=== PATIENT | female | born 1990 | race American Indian/Alaskan Native ===

== ENCOUNTER 2019-09-28 02:54 | Emergency (ER) | payer SELFPAY ==
[2019-09-28 03:59] LABS: Basophils % (Auto) 0.5 % (0.0-1.8); Eosinophils % (Auto) 0.5 % (0.0-4.3); Hematocrit 26.2 % (30.3-42.9); Hemoglobin 8.5 gm/dl (10.1-14.3); Lymphocytes # (Auto) 1.3 K/mm3 (1.2-5.4); Lymphocytes % (Auto) 20.5 % (13.4-35.0); Mean Corpuscular HGB Conc 32 % (30-34); Mean Corpuscular Volume 77 fl (79-97); Monocytes # (Auto) 0.4 K/mm3 (0.0-0.8); Monocytes % (Auto) 6.2 % (0.0-7.3); Platelet Count 283 K/mm3 (140-440); Red Blood Count 3.43 M/mm3 (3.65-5.03); Red Cell Distribution Width 15.8 % (13.2-15.2)
[2019-09-28 04:24] LABS: Alanine Aminotransferase 16 units/L (7-56); Albumin 3.7 g/dL (3.9-5); BUN/Creatinine Ratio 14; Blood Urea Nitrogen 13 mg/dL (7-17); Calcium 8.6 mg/dL (8.4-10.2); Hemolysis Index 4
[2019-09-28] MEDS ORDERED: SODIUM CHLORIDE 0.9% 1000 ML 1,000 ML IV ONE (05:01)
[2019-09-28] MEDS ORDERED: ONDANSETRON 4 MG/2 ML INJ IV ONE (05:01)
[2019-09-28] MEDS ORDERED: MORPHINE 4 MG/1 ML INJ IV ONE (05:01)
--- NOTE | 2019-09-28 06:01 | Cat Scan Report ---
CT ABDOMEN AND PELVIS WITH CONTRAST INDICATION: Right lower quadrant abdominal pain. TECHNIQUE: Axial CT images were obtained through the abdomen and pelvis after IV contrast. All CT scans at this location are performed using CT dose reduction for ALARA by means of automated exposure control. COMPARISON: None available. FINDINGS: LOWER CHEST: No significant abnormality. LIVER: No significant abnormality. GALLBLADDER: No significant abnormality. BILE DUCTS: No significant abnormality. PANCREAS: No significant abnormality. SPLEEN: No significant abnormality. ADRENALS: No significant abnormality. RIGHT KIDNEY and URETER: No significant abnormality. LEFT KIDNEY and URETER: No significant abnormality. STOMACH and SMALL BOWEL: No significant abnormality. COLON: No significant abnormality. APPENDIX: No significant abnormality. PERITONEUM: Trace amount of free pelvic fluid. No free air. No fluid collection. LYMPH NODES: No significant adenopathy. AORTA and ARTERIES: No significant abnormality. IVC and VEINS: No significant abnormality. URINARY BLADDER: No significant abnormality. REPRODUCTIVE ORGANS: No significant abnormality. Bilateral tubal ligation clips. ADDITIONAL FINDINGS: None. SKELETAL SYSTEM: No significant abnormality. IMPRESSION: 1. No significant abnormality. 2. Trace amount of free pelvic fluid likely physiologic in etiology Signer Name: Saud Motta MD Signed: 09/28/2019 5:57 AM Workstation Name: [id number]
[2019-09-28 06:36] LABS: Bilirubin,Urine NEG (Negative); Blood,Urine SM (Negative); Color,Urine Yellow (Yellow); Mucus,Urine FEW /HPF; Protein,Urine <15 mg/dL mg/dL (Negative); Urobilinogen,Urine < 2.0 mg/dL (<2.0)
--- NOTE | 2019-09-28 07:19 | Emergency Department Report ---
ED Abdominal Pain HPI - General Chief Complaint: Abdominal Pain Stated Complaint: RLQ ABDOMINAL PAIN Time Seen by Provider: 09/28/19 06:48 Source: patient, EMS Mode of arrival: Wheelchair Limitations: No Limitations - History of Present Illness Initial Comments: This pleasant 29-year-old female presents the emergency department chief complaint of right lower quadrant/right sided pelvic pain that started suddenly this morning at midnight. She reports this pain started in her right flank and radiates to the right lower quadrant. She denies any other associated symptoms such as nausea, vomiting, diarrhea, fever, chills, night sweats, headache, dizz iness, blurry vision, chest pain, shortness of breath. She reports the pain is sharp and intermittently cramping and is a 9 out of 10 in severity. She denies any chance of due to not being sexually active as well as having a tubal ligation. She declines any work-up for STI due to not being sexually active. Severity scale (0 -10): 4 - Related Data Previous Rx's Medication Instructions Recorded Last Taken Type Ibuprofen [Motrin 800 MG tab] 800 mg PO Q8HR PRN #30 tablet 09/28/19 Unknown Rx Allergies Allergy/AdvReac Type Severity Reaction Status Date / Time No Known Allergies Allergy Verified 09/28/19 03:23 ED Review of Systems ROS: Stated complaint: RLQ ABDOMINAL PAIN Other details as noted in HPI Comment: All other systems reviewed and negative Constitutional: denies: chills, fever Eyes: denies: eye pain, eye discharge, vision change ENT: denies: ear pain, throat pain Respiratory: denies: cough, shortness of breath, wheezing Cardiovascular: denies: chest pain, palpitations Endocrine: no symptoms reported Gastrointestinal: as per HPI, abdominal pain. denies: nausea, diarrhea Genitourinary: as per HPI. denies: urgency, dysuria, discharge Musculoskeletal: as per HPI, back pain. denies: joint swelling, arthralgia Skin: denies: rash, lesions Neurological: denies: headache, weakness, paresthesias Psychiatric: denies: anxiety, depression Hematological/Lymphatic: denies: easy bleeding, easy bruising ED Past Medical Hx - Past Medical History Previous Medical History?: Yes Hx Asthma: Yes (as child) - Surgical History Past Surgical History?: Yes Additional Surgical History: tubes tied - Social History Smoking Status: Never Smoker Substance Use Type: None - Medications Home Medications: Home Medications Medication Instructions Recorded Confirmed Last Taken Type Ibuprofen [Motrin 800 MG tab] 800 mg PO Q8HR PRN #30 tablet 09/28/19 Unknown Rx ED Physical Exam - General Limitations: No Limitations General appearance: alert, in no apparent distress - Head Head exam: Present: atraumatic, normocephalic - Eye Eye exam: Present: normal appearance, PERRL, EOMI Pupils: Present: normal accommodation - ENT ENT exam: Present: normal exam, normal orophraynx, mucous membranes moist - Neck Neck exam: Present: normal inspection, full ROM. Absent: tenderness, meningismus - Respiratory Respiratory exam: Present: normal lung sounds bilaterally. Absent: respiratory distress, wheezes, rales, rhonchi, stridor, chest wall tenderness - Cardiovascular Cardiovascular Exam: Present: regular rate, normal rhythm, normal heart sounds. Absent: systolic murmur, diastolic murmur, rubs, gallop - GI/Abdominal GI/Abdominal exam: Present: soft, tenderness (Mild tenderness to the right lower quadrant and right side of the pelvis, negative psoas and obturator sign, no rebound or guarding, negative Avalos sign), normal bowel sounds. Absent: distended, guarding, rebound - Extremities Exam Extremities exam: Present: normal inspection, full ROM. Absent: tenderness, calf tenderness - Back Exam Back exam: Present: normal inspection - Neurological Exam Neurological exam: Present: alert, oriented X3 - Psychiatric Psychiatric exam: Present: normal affect, normal mood - Skin Skin exam: Present: warm, dry, intact, normal color. Absent: rash ED Course - Reevaluation(s) Reevaluation #1: 09/28/19 08:02 On reevaluation the patient is feeling much better after pain medication. Her CT was unremarkable and negative for acute process. Ultrasound was also unremarkable. Patient was offered STI work-up including pelvic exam to rule out PID and TOA however she politely declined. I suspect her pain could be secondary to a ruptured ovarian cyst there is a trace amount of free fluid in the pelvis that is likely physiologic per radiology. Otherwise the patient's work-up was unremarkable. She does have a history of chronic iron deficiency anemia which is present on her labs today. Educated her to supplement with iron and vitamin C and follow-up with her primary doctor regarding this. She was instructed to return to the emerge part immediately she develops any change or worsening symptoms. She verbalized understanding the diagnosis, treatment plan and follow-up instructions and all of her questions were answered. ED Medical Decision Making - Lab Data Result diagrams: 09/28/19 03:30 09/28/19 03:30 Lab Results 09/28/19 09/28/19 09/28/19 Range/Units 03:30 03:30 03:30 WBC 6.4 (4.5-11.0) K/mm3 RBC 3.43 L (3.65-5.03) M/mm3 Hgb 8.5 L (10.1-14.3) gm/dl Hct 26.2 L (30.3-42.9) % MCV 77 L (79-97) fl MCH 25 L (28-32) pg MCHC 32 (30-34) % RDW 15.8 H (13.2-15.2) % Plt Count 283 (140-440) K/mm3 Lymph % (Auto) 20.5 (13.4-35.0) % Foard % (Auto) 6.2 (0.0-7.3) % Eos % (Auto) 0.5 (0.0-4.3) % Baso % (Auto) 0.5 (0.0-1.8) % Lymph # 1.3 (1.2-5.4) K/mm3 Foard # 0.4 (0.0-0.8) K/mm3 Eos # 0.0 (0.0-0.4) K/mm3 Baso # 0.0 (0.0-0.1) K/mm3 Seg Neutrophils % 72.3 H (40.0-70.0) % Seg Neutrophils # 4.7 (1.8-7.7) K/mm3 Sodium 138 (137-145) mmol/L Potassium 3.9 (3.6-5.0) mmol/L Chloride 105.7 (98-107) mmol/L Carbon Dioxide 20 L (22-30) mmol/L Anion Gap 16 mmol/L BUN 13 (7-17) mg/dL Creatinine 0.9 (0.7-1.2) mg/dL Estimated GFR > 60 ml/min BUN/Creatinine Ratio 14 % Glucose 107 H (65-100) mg/dL Calcium 8.6 (8.4-10.2) mg/dL Total Bilirubin < 0.20 (0.1-1.2) mg/dL AST 19 (5-40) units/L ALT 16 (7-56) units/L Alkaline Phosphatase 72 (35-129) units/L Total Protein 7.3 (6.3-8.2) g/dL Albumin 3.7 L (3.9-5) g/dL Albumin/Globulin Ratio 1.0 % Lipase 45 (13-60) units/L HCG, Qual Negative (Negative) Urine Color (Yellow) Urine Turbidity (Clear) Urine pH (5.0-7.0) Ur Specific [place] (1.003-1.030) Urine Protein (Negative) mg/dL Urine Glucose (UA) (Negative) mg/dL Urine Ketones (Negative) mg/dL Urine Blood (Negative) Urine Nitrite (Negative) Urine Bilirubin (Negative) Urine Urobilinogen (<2.0) mg/dL Ur Leukocyte Esterase (Negative) Urine WBC (Auto) (0.0-6.0) /HPF Urine RBC (Auto) (0.0-6.0) /HPF U Epithel Cells (Auto) (0-13.0) /HPF Urine Mucus /HPF 07/15/20 Range/Units 06:14 WBC (4.5-11.0) K/mm3 RBC (3.65-5.03) M/mm3 Hgb (10.1-14.3) gm/dl Hct (30.3-42.9) % MCV (79-97) fl MCH (28-32) pg MCHC (30-34) % RDW (13.2-15.2) % Plt Count (140-440) K/mm3 Lymph % (Auto) (13.4-35.0) % Foard % (Auto) (0.0-7.3) % Eos % (Auto) (0.0-4.3) % Baso % (Auto) (0.0-1.8) % Lymph # (1.2-5.4) K/mm3 Foard # (0.0-0.8) K/mm3 Eos # (0.0-0.4) K/mm3 Baso # (0.0-0.1) K/mm3 Seg Neutrophils % (40.0-70.0) % Seg Neutrophils # (1.8-7.7) K/mm3 Sodium (137-145) mmol/L Potassium (3.6-5.0) mmol/L Chloride (98-107) mmol/L Carbon Dioxide (22-30) mmol/L Anion Gap mmol/L BUN (7-17) mg/dL Creatinine (0.7-1.2) mg/dL Estimated GFR ml/min BUN/Creatinine Ratio % Glucose (65-100) mg/dL Calcium (8.4-10.2) mg/dL Total Bilirubin (0.1-1.2) mg/dL AST (5-40) units/L ALT (7-56) units/L Alkaline Phosphatase (35-129) units/L Total Protein (6.3-8.2) g/dL Albumin (3.9-5) g/dL Albumin/Globulin Ratio % Lipase (13-60) units/L HCG, Qual (Negative) Urine Color Yellow (Yellow) Urine Turbidity Clear (Clear) Urine pH 5.0 (5.0-7.0) Ur Specific [place] 1.017 (1.003-1.030) Urine Protein <15 mg/dl (Negative) mg/dL Urine Glucose (UA) Neg (Negative) mg/dL Urine Ketones Neg (Negative) mg/dL Urine Blood Sm (Negative) Urine Nitrite Neg (Negative) Urine Bilirubin Neg (Negative) Urine Urobilinogen < 2.0 (<2.0) mg/dL Ur Leukocyte Esterase Neg (Negative) Urine WBC (Auto) 2.0 (0.0-6.0) /HPF Urine RBC (Auto) 2.0 (0.0-6.0) /HPF U Epithel Cells (Auto) < 1.0 (0-13.0) /HPF Urine Mucus Few /HPF - Radiology Data Radiology results: report reviewed, image reviewed Ultrasound Report Signed Patient: DARLYN GREEN MR#: [id number] 570 : 1990 Acct:[id number] Age/Sex: 29 / F ADM Date: 09/28/19 Loc: ED Attending Dr: Ordering Physician: ARIN STORM Date of Service: 09/28/19 Procedure(s): US transvaginal Accession Number(s): [id number] cc: ARIN STORM ULTRASOUND PELVIS INDICATION: severe right sided abdominal pain. TECHNIQUE: Transabdominal and Transvaginal. Duplex Color Doppler used: Yes. COMPARISON: CT abdomen and pelvis with contrast from earlier today. FINDINGS: Uterus: Present. Size: 10.6 x 4.2 x 5.5 cm. Endometrial complex: Normal measuring 1.4 cm. Mass lesions: None. Additional findings: None. Right Ovary: Size: 3.1 x 2.6 x 2.9 cm Blood flow: Normal. Cyst or mass: A dominant follicle measures 1.6 cm. No other solid or cystic lesions. Left Ovary: Size: 2.8 x 1.9 x 2.4 cm Blood flow: Normal. Cyst or mass: None. Urinary Bladder: Normal. Free Fluid: Trace amount. Additional Findings: None. IMPRESSION: 1. No acute sonographic abnormality of the pelvis. 2. Trace amount of free fluid is likely physiologic. Signer Name: Karlos Perea MD Signed: 09/28/2019 7:54 AM Workstation Name: [id number] Transcribed By: [place] Dictated By: Karlos Perea MD Electronically Authenticated By: Karlos Perea MD Signed Date/Time: 09/28/19 0754 Cat Scan Report Signed Patient: DARLYN GREEN MR#: [id number] : 1990 Acct:[id number] Age/Sex: 29 / F ADM Date: 09/28/19 Loc: ED Attending Dr: Ordering Physician: ARIN MOTA Date of Service: 09/28/19 Procedure(s): CT abdomen pelvis w con Accession Number(s): [id number] cc: ARIN MOTA CT ABDOMEN AND PELVIS WITH CONTRAST INDICATION: Right lower quadrant abdominal pain. TECHNIQUE: Axial CT images were obtained through the abdomen and pelvis after IV contrast. All CT scans at this location are performed using CT dose reduction for ALARA by means of automated exposure control. COMPARISON: None available. FINDINGS: LOWER CHEST: No significant abnormality. LIVER: No significant abnormality. GALLBLADDER: No significant abnormality. BILE DUCTS: No significant abnormality. PANCREAS: No significant abnormality. SPLEEN: No significant abnormality. ADRENALS: No significant abnormality. RIGHT KIDNEY and URETER: No significant abnormality. LEFT KIDNEY and URETER: No significant abnormality. STOMACH and SMALL BOWEL: No significant abnormality. COLON: No significant abnormality. APPENDIX: No significant abnormality. PERITONEUM: Trace amount of free pelvic fluid. No free air. No fluid collection. LYMPH NODES: No significant adenopathy. AORTA and ARTERIES: No significant abnormality. IVC and VEINS: No significant abnormality. URINARY BLADDER: No significant abnormality. REPRODUCTIVE ORGANS: No significant abnormality. Bilateral tubal ligation clips. ADDITIONAL FINDINGS: None. SKELETAL SYSTEM: No significant abnormality. IMPRESSION: 1. No significant abnormality. 2. Trace amount of free pelvic fluid likely physiologic in etiology Signer Name: Saud Motta MD Signed: 09/28/2019 5:57 AM Workstation Name: [id number] - Medical Decision Making On reevaluation the patient is feeling much better after pain medication. Her CT was unremarkable and negative for acute process. Ultrasound was also unremarkable. Patient was offered STI work-up including pelvic exam to rule out PID and TOA however she politely declined. I suspect her pain could be secondary to a ruptured ovarian cyst there is a trace amount of free fluid in the pelvis that is likely physiologic per radiology. Otherwise the patient's work-up was unremarkable. She does have a history of chronic iron deficiency anemia which is present on her labs today. Educated her to supplement with iron and vitamin C and follow-up with her primary doctor regarding this. She was instructed to return to the emerge part immediately she develops any change or worsening symptoms. She verbalized understanding the diagnosis, treatment plan and follow-up instructions and all of her questions were answered. - Differential Diagnosis appendicitis, ovarian cyst, ovarian torsion, nephrolithiasis Critical care attestation.: If time is entered above; I have spent that time in minutes in the direct care of this critically ill patient, excluding procedure time. ED Disposition Clinical Impression: RLQ abdominal pain Disposition: - TO HOME OR SELFCARE Is pt being admited?: No Condition: Stable Instructions: Abdominal Pain (ED) Prescriptions: Ibuprofen [Motrin 800 MG tab] 800 mg PO Q8HR PRN #30 tablet PRN Reason: Pain , Severe (7-10) Referrals: KODI JANSEN MD [Primary Care Provider] - 3-5 Days GHASSAN AHMADI MD [Staff Physician] - 3-5 Days [facility] [Provider Group] - 3-5 Days Forms: Work/School Release Form(ED) Time of Disposition: 08:05
--- NOTE | 2019-09-28 07:59 | Ultrasound Report ---
ULTRASOUND PELVIS INDICATION: severe right sided abdominal pain. TECHNIQUE: Transabdominal and Transvaginal. Duplex Color Doppler used: Yes. COMPARISON: CT abdomen and pelvis with contrast from earlier today. FINDINGS: Uterus: Present. Size: 10.6 x 4.2 x 5.5 cm. Endometrial complex: Normal measuring 1.4 cm. Mass lesions: None. Additional findings: None. Right Ovary: Size: 3.1 x 2.6 x 2.9 cm Blood flow: Normal. Cyst or mass: A dominant follicle measures 1.6 cm. No other solid or cystic lesions. Left Ovary: Size: 2.8 x 1.9 x 2.4 cm Blood flow: Normal. Cyst or mass: None. Urinary Bladder: Normal. Free Fluid: Trace amount. Additional Findings: None. IMPRESSION: 1. No acute sonographic abnormality of the pelvis. 2. Trace amount of free fluid is likely physiologic. Signer Name: Karlos Perea MD Signed: 09/28/2019 7:54 AM Workstation Name: [id number]
[2019-09-28 09:45] VITALS: BP 116/87
== END 2019-09-28 09:48 | disposition home or self-care (01) ==
LOC: ED 02:54
DX: R10.31 Right lower quadrant pain (principal); R10.2 Pelvic and perineal pain; R50.9 Fever, unspecified; J45.909 Unspecified asthma, uncomplicated; Z98.890 Other specified postprocedural states; Z79.1 Long term (current) use of non-steroidal anti-inflammatories (NSAID)
CPT/HCPCS: 36415; 74177; 76830; 76856; 80053; 81001; 83690; 84703; 85025; 96374; 96375; 99284; J2270; J2405; J7030; Q9967; 96361